=== PATIENT | female | born 1995 | race Caucasian/White ===

== ENCOUNTER 2023-09-28 13:09 | Emergency (ER) | payer MEDICAID, MEDICARE ==
[~2023-09-28] VITALS: Ht 162.6 cm; Wt 54.4 kg
[2023-09-28 13:21] VITALS: BP_SYST 113; PULSE 78; RESP 16; TEMP 98.2; O2SAT 99
[2023-09-28] MEDS ORDERED: IBUP-1969 PO (13:23)
[2023-09-28] MEDS ORDERED: CLIN-142 PO (13:23)
[2023-09-28] MEDS: CLINDAMYCIN HCL 150 MG CAPSULE PO ONE (13:50)
[2023-09-28] MEDS: IBUPROFEN 600 MG TABLET PO ONE (13:50)
== END 2023-09-28 13:36 | disposition home or self-care (01) ==
LOC: SED 13:09
DX: K04.7 Periapical abscess without sinus (principal); F15.90 Other stimulant use, unspecified, uncomplicated; Z59.00 Homelessness unspecified
CPT/HCPCS: 99283